=== PATIENT | male | born 1965 | race Two or more races ===

== ENCOUNTER 2016-11-19 10:26 | Inpatient (IN) | payer SELFPAY ==
[2016-11-19] VITALS (13 sets, daily range): BP systolic 133–175; BP diastolic 67–113
[~2016-11-19] VITALS: Ht 162.6 cm; Wt 92.1 kg
[~2016-11-19 10:26] MED LIST: METO25TA2 PO
[2016-11-19] MEDS ORDERED: HEPARIN for IV BOLUS 10,000 UNIT/10 ML VIAL. ONE ×2 (10:40→10:49)
[2016-11-19] MEDS ORDERED: MORPHINE SULFATE 4 MG/ML DISP.SYRIN. ONE (10:40)
[2016-11-19] MEDS ORDERED: ASPIRIN 325 MG TABLET PO ONE (10:45)
[2016-11-19] MEDS ORDERED: HEPARIN for IV BOLUS 10,000 UNIT/10 ML VIAL. IV ONE (10:45)
[2016-11-19] MEDS ORDERED: MORPHINE SULFATE 4 MG/ML DISP.SYRIN. IV ONE (10:45)
[2016-11-19] MEDS ORDERED: LIDOCAINE 2% 20 ML VIAL. ONE ×2 (10:46→13:19)
[2016-11-19] MEDS ORDERED: IOHEXOL 300 MG/ML 100ML VIAL. ONE ×3 (10:46→13:19)
--- NOTE | 2016-11-19 10:48 | PHYS DOC ---
Past Medical History Past Medical History: Hypertension, [place], Other Additional Past Medical Histor: possible HTN (pt has not been diagnosed) Past Surgical History: Other Additional Past Surgical Histo: right ankle x2 Additional Information: 1 PPD Alcohol Use: Occasionally Additional Information: DRINKS EVERY WEDNESDAY Drug Use: None Adult General Chief Complaint Chief Complaint: CHEST PAIN HPI HPI Patient is a 51 year old MALE who presents with chest pain. Started around 10 AM this morning, substernal, diaphoretic, short of breath. Patient reportedly had a negative catheter in September of this year. He has known history of hypertension. He initially stated that he had taken his aspirin but his significant other reportedly DNR only taking his hypertensive medication. No known Cardiac disease, reports this pain feels similar to when he came in September. Review of Systems Review of Systems Unable to obtain secondary to medical condition Current Medications Current Medications Current Medications Medications (Trade) Dose Ordered Sig/Delmy Start Time Stop Time Status Last Admin Dose Admin Aspirin (Adriana Aspirin) 325 mg 1X ONCE 11/19/16 10:45 11/19/16 10:46 DC 11/19/16 10:43 325 MG Heparin Sodium (Porcine) (Heparin Sodium) 4,000 unit 1X ONCE 11/19/16 10:45 11/19/16 10:46 DC 11/19/16 10:44 4,000 UNIT Heparin Sodium/ Sodium Chloride 1,000 ml @ As Directed STK-MED ONCE 11/19/16 10:46 11/19/16 10:47 DC Iohexol (Omnipaque 300 Mg/ml) 100 ml STK-MED ONCE 11/19/16 10:46 11/19/16 10:47 DC Lidocaine HCl 20 ml STK-MED ONCE 11/19/16 10:46 11/19/16 10:47 DC Morphine Sulfate 4 mg 1X ONCE 11/19/16 10:45 11/19/16 10:46 DC 11/19/16 10:44 4 MG Allergies Allergies Allergies Coded Allergies Type Severity Reaction Last Updated Verified No Known Drug Allergies 10/11/16 No Physical Exam Physical Exam Constitutional: Well developed, well nourished,moderate distress, diaphoretic HENT: Normocephalic, atraumatic, bilateral external ears normal, oropharynx moist, no oral exudates, nose normal. [] Eyes: PERRLA, EOMI, conjunctiva normal, no discharge. [] Neck: Normal range of motion, no tenderness, supple, no stridor. [] Cardiovascular:Heart rate regular with regular rhythm, no murmur, bilateral arm and leg pulses intact Lungs & Thorax: Bilateral breath sounds clear to auscultation , no wheeze Abdomensoft, no tenderness, no masses, no pulsatile masses. [] Skin: Warm, dry, no erythema, no rash. [] Back: No tenderness, no CVA tenderness. [] Extremities: No tenderness, no cyanosis, no clubbing, ROM intact Neurologic: Alert and oriented X 3, normal motor function, normal sensory function, no focal deficits noted. [] Current Patient Data Vital Signs Vital Signs Date Time Temp Pulse Resp B/P (MAP) Pulse Ox O2 Delivery O2 Flow Rate FiO2 11/19/16 10:44 24 96 Room Air 11/19/16 10:28 97.8 55 168/92 (117) 97.8 EKG EKG EKG shows 61 bpm, sinus, normal axis, acute inferior lateral STEMI noted, acute change from previous EKGs in our system, interpreted by me Radiology/Procedures Radiology/Procedures [] Course & Med Decision Making Course & Med Decision Making Pertinent Labs and Imaging studies reviewed. (See chart for details) She has given full dose aspirin, heparin bolus 4000 units, 4 mg IV morphine. I was in contact with Dr. Lio Germain and Dr. Montgomery libertarian, patient will be taken directly to the Marketing And Public Relations Manager for an immediate intervention. I spoke with Dr. Wallis , who accepted the patient to inpatient status. Dragon Disclaimer Dragon Disclaimer This electronic medical record was generated, in whole or in part, using a voice recognition dictation system. Departure Departure Impression: Primary Impression: STEMI (ST elevation myocardial infarction) Disposition: ADMITTED INPATIENT Admitting Physician: Other Condition: CRITICAL Referrals: NO PCP (PCP) LUIS ENRIQUE MOISE MD Nov 19, 2016 10:48
[2016-11-19] MEDS ORDERED: NITROGLYCERIN 200 MCG/2 ML SYRINGE FOR CATH/VASC LAB. ONE ×2 (10:49→11:04)
[2016-11-19] MEDS ORDERED: VERAPAMIL 5 MG/2 ML VIAL. ONE (10:49)
[2016-11-19] MEDS ORDERED: fentaNYL PF VIAL 100 MCG/2 ML VIAL ONE (10:50)
[2016-11-19] MEDS ORDERED: MIDAZOLAM HCL/PF 2 MG/2 ML VIAL. ONE (10:50)
[2016-11-19] MEDS ORDERED: IOHEXOL 300 MG/ML 100ML VIAL. IART ONE (11:00)
[2016-11-19] MEDS ORDERED: NITROGLYCERIN 200 MCG/2 ML SYRINGE FOR CATH/VASC LAB. IART ONE ×2 (11:00→11:30)
[2016-11-19] MEDS ORDERED: fentaNYL PF VIAL 100 MCG/2 ML VIAL IV ONE (11:00)
[2016-11-19] MEDS ORDERED: LIDOCAINE 2% 20 ML VIAL. IJ ONE (11:00)
[2016-11-19] MEDS ORDERED: VERAPAMIL 5 MG/2 ML VIAL. IART ONE (11:00)
[2016-11-19] MEDS ORDERED: HEPARIN for IV BOLUS 10,000 UNIT/10 ML VIAL. IART ONE (11:00)
[2016-11-19] MEDS ORDERED: MIDAZOLAM HCL/PF 2 MG/2 ML VIAL. IV ONE (11:00)
[2016-11-19] MEDS ORDERED: TIROFIBAN 12.5MG -0.9% NS 250 ML IV ONE (11:07)
[2016-11-19] MEDS ORDERED: CONTRAST GIVEN MC PRN (11:15)
[2016-11-19] MEDS ORDERED: NITROGLYCERIN PREMIX 250 ML IV ONE ×2 (11:21→11:30)
--- NOTE | 2016-11-19 11:27 | ACF ---
Admission Forms Criteria MYOCARDIAL INFARCTION Clinical Indications for Admission to Inpatient Care (Place 'X' for any and all applicable criteria): Admission is indicated for 1 or more of the following (1)(2)(3)(4): [X]I. Acute MO [ ]II. Contraindications and/or Inappropriate clinical situations for Observational Care in patients with Myocardial Infarction, when ANY ONE of the following is required: [ ]a) Patient with High risk of cardiac embolism (e.g, patients with previous cardiac embolism, LVEF < 40%, age >75 and patients with prosthetic valve) 18 [ ]b) Patient with Moderate risk including DM patient, CAD and patient aged 65-75 18 [ ]c) Patient with any change in cardiac biomarker especially troponin should be managed as high risk in an inpatient setting 19 [ ]d) Physician judgement irrespective of ECG and other diagnostic findings 20 [ ]III.General contraindications and/or Inappropriate clinical situations for Observational Care in patients with Myocardial Infarction, when ANY ONE of the following is required: [ ]a) Prediction of prolongation of LOS based on ANY ONE of the following may be considered as a contraindication for observational care 2, 3, 4, 5, 6, 7, 8, 9, 10, 11 [ ]i) Age > 65 yrs. [ ]ii) Patient arriving by ambulance [ ]iii) Patient with high acuity [ ]iv) Patient requiring vital sign monitoring [ ]v) Patient on IV medication [ ]b) Systolic blood pressures greater than or equal to 180mmHg 3,12 [ ]c) Patient with altered mental status including delirium and other alteration of consciousness, (3) [ ]d) Patient whose discharge disposition will be to a nursing home home or rehabilitation home should not be managed in Emergency Department Observation Unit. CMS rule requires 3 days hospital stay before such placement. 3,13 [ ]e) Patient with failure to thrive due to broad array of etiologies 3 ,16,17 [ ]f) Inability to ambulate 3,14 Extended stay beyond goal length of stay may be needed for (1)(18)(20)(24)(25): [ ]a) Hemodynamic instability, persisting symptoms after intensive medical management, or recurring severe, prolonged symptoms [ ]b) Intravascular procedural complications such as acute vessel closure, stent thrombosis, stent malposition, or vessel dissection (26)(27)(28) [ ]c) Extravascular procedural complications such as retroperitoneal hematoma , pericardial effusion, or cardiac tamponade [ ]d) Entry site complications causing bleeding, hematoma or distal ischemia and requiring ongoing monitoring, surgical repair or surgical thrombectomy. Dangerous arrhythmia [ ]e) Complicated percutaneous coronary intervention (e.g., unsuccessful percutaneous coronary intervention or percutaneous coronary intervention of non- eklutna vessel) [ ]f) Urgent or emergent surgery for complications of MO (e.g., ventricular rupture, valvular insufficiency) [ ]g) Surgical revascularization via coronary artery bypass graft [ ]h) Heart failure (e.g., pulmonary edema) [ ]i) Unstable pulmonary comorbidities, including COPD or pneumonia (31) [ ]j) Acute renal failure The original [employer] content created by [employer] has been revised. The portions of the content which have been revised are identified through the use of italic text or in bold, and [facility] [employer] has neither reviewed nor approved the modified material. All other unmodified content is copyright [facility] [employer] Please see references footnoted in the original [facility] edition 2016 Admission Criteria Met?: Yes SHA MCDONALD Nov 19, 2016 11:27
[2016-11-19] MEDS ORDERED: CLOPIDOGREL BISULFATE 75 MG TABLET PO ONE (11:30)
[2016-11-19] MEDS: TIROFIBAN 12.5MG -0.9% NS 250 ML IV PRN ×2 (11:34→22:26)
[2016-11-19 11:51] LABS: BASO # 0.1 x10^3/uL (0.0-0.2); BASO % 1 % (0-3); EOS % 3 % (0-3); HEMATOCRIT 41.7 % (39.0-53.0); LYMPH % 36 % (24-48); MEAN CORPUSCULAR HEMOGLOBIN 27 pg (25-35); MEAN CORPUSCULAR HGB CONC 34 g/dL (31-37); MEAN CORPUSCULAR VOLUME 80 fL (79-100); MONO % 10 % (0-9); NEUT % 49 % (31-73); PLATELET COUNT 244 x10^3/uL (140-400); RED BLOOD COUNT 5.19 x10^6/uL (4.30-5.70); RED CELL DISTRIBUTION WIDTH 13.7 % (11.5-14.5)
[2016-11-19 12:14] LABS: ALBUMIN 3.2 g/dL (3.4-5.0); ALBUMIN/GLOBULIN RATIO 0.9 (1.0-1.7); CALCIUM 9.1 mg/dL (8.5-10.1); CREATININE 0.9 mg/dL (0.7-1.3); GFR 88.6; POTASSIUM 3.9 mmol/L (3.5-5.1); TOTAL BILIRUBIN 0.5 mg/dL (0.2-1.0); TOTAL PROTEIN 6.8 g/dL (6.4-8.2)
--- NOTE | 2016-11-19 13:52 | EKG ---
[facility] [address] [place] [address] Test Date: 2016-11-19 Test Time: 10:29:37 Pat Name: SARAH GODOY Department: Room: 252 1 Gender: M Parole Or Probation Officer: : 1965 Requested By: LUIS ENRIQUE MOISE Order Number: [id number] Reading MD: Marcia Oliveira Measurements Intervals [place] Rate: 61 P: -34 [place]: 146 QRS: 26 QRSD: 92 T: 46 QT: 412 QTc: 416 Interpretive Statements SINUS RHYTHM ACUTE ST ELEVATION INFEROLATERAL WALL MT Electronically Signed On 11-21-2016 19:03:52 CDT by Marcia Oliveira
[2016-11-19] MEDS: METOPROLOL SUCC 24HR ER 25 MG TAB.ER.24H. PO SCH ×2 (14:00→21:21)
--- NOTE | 2016-11-19 14:52 | HP ---
ADMIT DATE: 11/19/2016 CHIEF COMPLAINT: Chest pain. HISTORY OF PRESENT ILLNESS: The patient presented to the Emergency Room with central chest pain which started at about 10 o'clock this morning. He relates he had shortness of breath as well as sweating with this. Pain did not get better when he took extra aspirin this morning. He actually had undergone a cardiac catheterization in September of this year which was clean. In the Emergency Room, however, EKG showed significant ST elevations, and he was immediately taken to Cardiac Cath for evaluation. Surprisingly, catheterization once again was reportedly clean. The patient is now admitted to the [facility] for post catheterization care. He remains on nitroglycerin drip. PAST MEDICAL HISTORY: No cardiac disease per catheterization one month ago. No other medical issues. FAMILY HISTORY: No family history of heart disease but hypertension. SOCIAL HISTORY: He lives with his . He smokes about a pack a day, alcohol occasionally. ALLERGIES: No known drug allergies. HOME MEDICATIONS: Reconciled with MAR. Only takes metoprolol at home. REVIEW OF SYSTEMS: The patient is slightly sedated from catheterization. Still has some remnant of his chest pain in the middle of his chest. No other symptoms, however. PHYSICAL EXAMINATION: VITAL SIGNS: Show a blood pressure of 141/87, heart rate of 68, respiratory rate at 20. He is afebrile. GENERAL: This is a 51-year-old gentleman, mildly sedated, answering appropriately, in no acute distress. HEENT: Shows no scleral icterus. NECK: Supple. LUNGS: Clear to auscultation bilaterally. HEART: Regular rate and rhythm. ABDOMEN: Has positive bowel sounds, soft, nontender. EXTREMITIES: Show no edema, no clubbing, no cyanosis. SKIN: Warm, soft, and dry. LABORATORY DATA: CBC with a WBC of 11.0, hemoglobin 14, and platelets of 244. Chemistries with a BUN and creatinine of 17 and 0.9, normal electrolytes, normal LFTs. Troponin initially was 0.09. Toxicity screen not obtained. ASSESSMENT AND PLAN: The patient is a 51-year-old gentleman re-presenting with atypical chest pain and EKG changes. A cardiac catheterization; however, is negative. We will recover from cardiac catheterization. He is still on Aggrastat as well as nitroglycerin. We will titrate the latter as tolerated. Post-Cath protocol is in place. No other risk factors for heart disease can be discerned. Etiology of his chest pain clearly is other. The picture is somewhat unusual given his significant EKG changes. Await further input from Cardiology. We will start proton pump inhibitor as well prophylactically. NUPUR VIZCAINO MD DR: UR/nts JOB#: [id number] / [id number] ELIE
[2016-11-19] MEDS ORDERED: HYDROCORTISONE 1% TOPICAL OINTMENT 30GM TUBE. TP PRN (15:15)
[2016-11-19] MEDS: PANTOPRAZOLE 40 MG TABLET.DR. PO SCH (15:41)
[2016-11-19] MEDS ORDERED: hydrALAZINE 20 MG/ML VIAL. IVP PRN (15:45)
--- NOTE | 2016-11-19 16:45 | CARD ---
APPROVED REPORT Procedure(s) performed: Right transradial approach Left Heart Catheterization PTCA - LAD HISTORY : tobacco history() : The patient is a current smoker. INDICATION The indication(s) include : STEMI (>0 to less than or equal to 6 hours), Patient is a 51-year-old gen tleman who comes into the hospital with acute onset of chest pain 30 minutes prior to arrival. He had a recent heart catheterization which was unremarkable. He had significant EKG changes suggestive of new ST elevation in the inferior and lateral leads and given these acute changes with his symptomatol ogy he was taken emergently to the catheter lab.. CASE TECHNIQUE During this case, Fluoroscopy and low osmolar contrast were used for imaging. PROCEDURE NARRATIVE The patient was brought emergently to the cardiac catheterization lab. A timeout was performed confi rming the patient's name, date of , procedure, and site of procedure. All necessary personnel w ere wearing the appropriate protective equipment and radiation monitor devices. After explaining the risks and benefits of the procedure and alternatives, verbal informed consent was obtained. (See [facility] for medications administered). The right wrist was sterilely prepped and draped in the us ual fashion. The right wrist was infiltrated with 1 mL of 2% lidocaine for subcutaneous anesthesia. A 6 Cypriot Terumo glide sheath was inserted into the right radial artery without difficulty. Right and left coronary angiography was performed using a 6Fr Ikari R 1.5 catheter and a TIG 4.0 catheter. HEMODYNAMICS: LVEDP 15 mm Hg No gradient on LV to aortic pullback. LEFT VENTRICULOGRAM: EF 55% Anterobasal: Normal. Anterolateral: Normal Apical: Akinetic Diaphragmatic: Normal Posterobasal: Normal CORONARY ANGIOGRAPHY: LM is a large caliber vessel with normal angiographic appearance. LAD is a large caliber vessel with an apical subtotal occlusion. Previous catheterization revealed an apical wrap around LAD, that was less robust. Ramus is a small caliber vessel with normal angiographic apeparance. LCx is a moderate caliber non-dominant vessel with normal angiographic appearance. OM1 is a moderate caliber vessel with normal angiographic appearance. RCA is a large caliber dominant vessel with normal angiographic appearance. INTERVENTIONAL TECHNIQUE: PTCA of the LAD. Due to the patient's persistent chest pain, lack of any clear evidence of apical LAD flow and ST elev ation and intervention was performed on the apical left anterior descending artery. Heparin and tirof georgi were used for anticoagulation and antiplatelet therapy. The patient was preloaded with aspirin. Through a 6 Cypriot EBU 3.5 guide catheter a 0.014 inch pro-water wire was advanced to the apical LAD. Prior to angioplasty multiple doses of nitroglycerin and verapamil were given but despite this there was no significant change and therefore the angioplasty was performed. Next, a Trek 2.0 x 12 mm ball oon was used to perform angioplasty of the distal LAD. Post angioplasty there was mildly increased fl ow in the apical LAD. Due to the small size of the vessel and no significant resolution further inter vention was deferred. Left ventricular end diastolic pressure was obtained with a pigtail catheter and pullback was performed after left ventriculography. All catheter exchanges and advancements were performed over a guidewire. At case completion the right radial sheath was removed and a Mobiscope ial band was applied with 13 ml of air. The patient tolerated the procedure well and there were no i mmediate complications. Conclusion 1. Apical left anterior descending artery occlusion, etiology unclear. No proximal plaque burden to n ote. No obvious stress-induced cardio myopathy by left ventriculography. 2. Unsuccessful apical LAD angioplasty with a 2.0 x 12 mm balloon. Recommendations ASA 81mg daily Plavix 75mg daily Continue Tirofiban gtt.
[2016-11-19] MEDS ORDERED: MORPHINE SULFATE 2 MG/ML DISP.SYRIN. IV PRN ×2 (20:15)
[2016-11-20 03:58] VITALS: BP 136/85
[2016-11-20 07:00] VITALS: BP 151/89
[2016-11-20] MEDS: PANTOPRAZOLE 40 MG TABLET.DR. PO SCH (08:23)
[2016-11-20] MEDS: METOPROLOL SUCC 24HR ER 25 MG TAB.ER.24H. PO SCH ×2 (08:24→21:02)
--- NOTE | 2016-11-20 10:04 | PDOC ---
PROGRESS NOTES Chief Complaint Chief Complaint cc: Chest pain A/P 1. STEMI: unsuccessful angioplasty, on Aspirin and Plavix, continue current care. prn nitro for chest pain 2. HTN: control with Meds 3. mixed hyperlipidemia: on statin Vitals Vitals Vital Signs Date Time Temp Pulse Resp B/P (MAP) Pulse Ox O2 Delivery O2 Flow Rate FiO2 11/20/16 08:24 85 151/89 11/20/16 08:15 Room Air 11/20/16 07:00 98.1 20 99 98.1 11/19/16 15:00 96.0 Physical Exam General: Alert, Oriented X3 Heart: Regular rate, Normal S1, Normal S2 Lungs: Clear Abdomen: Normal bowel sounds Extremities: No clubbing Labs LABS Laboratory Tests Test 11/19/16 10:32 11/19/16 10:35 White Blood Count 11.0 x10^3/uL (4.0-11.0) Red Blood Count 5.19 x10^6/uL (4.30-5.70) Hemoglobin 14.0 g/dL (13.0-17.5) Hematocrit 41.7 % (39.0-53.0) Mean Corpuscular Volume 80 fL (79-100) Mean Corpuscular Hemoglobin 27 pg (25-35) Mean Corpuscular Hemoglobin Concent 34 g/dL (31-37) Red Cell Distribution Width 13.7 % (11.5-14.5) Platelet Count 244 x10^3/uL (140-400) Neutrophils (%) (Auto) 49 % (31-73) Lymphocytes (%) (Auto) 36 % (24-48) Monocytes (%) (Auto) 10 % (0-9) Eosinophils (%) (Auto) 3 % (0-3) Basophils (%) (Auto) 1 % (0-3) Neutrophils # (Auto) 5.4 x10^3uL (1.8-7.7) Lymphocytes # (Auto) 4.0 x10^3/uL (1.0-4.8) Monocytes # (Auto) 1.1 x10^3/uL (0.0-1.1) Eosinophils # (Auto) 0.4 x10^3/uL (0.0-0.7) Basophils # (Auto) 0.1 x10^3/uL (0.0-0.2) Sodium Level 142 mmol/L (136-145) Potassium Level 3.9 mmol/L (3.5-5.1) Chloride Level 107 mmol/L (98-107) Carbon Dioxide Level 24 mmol/L (21-32) Anion Gap 11 (6-14) Blood Urea Nitrogen 17 mg/dL (8-26) Creatinine 0.9 mg/dL (0.7-1.3) Estimated GFR (Cockcroft-Gault) 88.6 BUN/Creatinine Ratio 19 (6-20) Glucose Level 129 mg/dL (70-99) Calcium Level 9.1 mg/dL (8.5-10.1) Total Bilirubin 0.5 mg/dL (0.2-1.0) Aspartate Amino Transf (AST/SGOT) 23 U/L (15-37) Alanine Aminotransferase (ALT/SGPT) 32 U/L (16-63) Alkaline Phosphatase 102 U/L (46-116) Troponin I Quantitative 0.019 ng/mL (0.000-0.055) Total Protein 6.8 g/dL (6.4-8.2) Albumin 3.2 g/dL (3.4-5.0) Albumin/Globulin Ratio 0.9 (1.0-1.7) Bedside Troponin I 0.01 ng/ml (<0.08) Assessment and Plan Assessmemt and Plan Problems Medical Problems: (1) STEMI (ST elevation myocardial infarction) Status: Acute Problems: Comment Review of Relevant I have reviewed the following items tessa (where applicable) has been applied. Labs Laboratory Tests Test 11/19/16 10:32 11/19/16 10:35 White Blood Count 11.0 x10^3/uL (4.0-11.0) Red Blood Count 5.19 x10^6/uL (4.30-5.70) Hemoglobin 14.0 g/dL (13.0-17.5) Hematocrit 41.7 % (39.0-53.0) Mean Corpuscular Volume 80 fL (79-100) Mean Corpuscular Hemoglobin 27 pg (25-35) Mean Corpuscular Hemoglobin Concent 34 g/dL (31-37) Red Cell Distribution Width 13.7 % (11.5-14.5) Platelet Count 244 x10^3/uL (140-400) Neutrophils (%) (Auto) 49 % (31-73) Lymphocytes (%) (Auto) 36 % (24-48) Monocytes (%) (Auto) 10 % (0-9) Eosinophils (%) (Auto) 3 % (0-3) Basophils (%) (Auto) 1 % (0-3) Neutrophils # (Auto) 5.4 x10^3uL (1.8-7.7) Lymphocytes # (Auto) 4.0 x10^3/uL (1.0-4.8) Monocytes # (Auto) 1.1 x10^3/uL (0.0-1.1) Eosinophils # (Auto) 0.4 x10^3/uL (0.0-0.7) Basophils # (Auto) 0.1 x10^3/uL (0.0-0.2) Sodium Level 142 mmol/L (136-145) Potassium Level 3.9 mmol/L (3.5-5.1) Chloride Level 107 mmol/L (98-107) Carbon Dioxide Level 24 mmol/L (21-32) Anion Gap 11 (6-14) Blood Urea Nitrogen 17 mg/dL (8-26) Creatinine 0.9 mg/dL (0.7-1.3) Estimated GFR (Cockcroft-Gault) 88.6 BUN/Creatinine Ratio 19 (6-20) Glucose Level 129 mg/dL (70-99) Calcium Level 9.1 mg/dL (8.5-10.1) Total Bilirubin 0.5 mg/dL (0.2-1.0) Aspartate Amino Transf (AST/SGOT) 23 U/L (15-37) Alanine Aminotransferase (ALT/SGPT) 32 U/L (16-63) Alkaline Phosphatase 102 U/L (46-116) Troponin I Quantitative 0.019 ng/mL (0.000-0.055) Total Protein 6.8 g/dL (6.4-8.2) Albumin 3.2 g/dL (3.4-5.0) Albumin/Globulin Ratio 0.9 (1.0-1.7) Bedside Troponin I 0.01 ng/ml (<0.08) Laboratory Tests Test 11/19/16 10:32 11/19/16 10:35 White Blood Count 11.0 x10^3/uL (4.0-11.0) Red Blood Count 5.19 x10^6/uL (4.30-5.70) Hemoglobin 14.0 g/dL (13.0-17.5) Hematocrit 41.7 % (39.0-53.0) Mean Corpuscular Volume 80 fL (79-100) Mean Corpuscular Hemoglobin 27 pg (25-35) Mean Corpuscular Hemoglobin Concent 34 g/dL (31-37) Red Cell Distribution Width 13.7 % (11.5-14.5) Platelet Count 244 x10^3/uL (140-400) Neutrophils (%) (Auto) 49 % (31-73) Lymphocytes (%) (Auto) 36 % (24-48) Monocytes (%) (Auto) 10 % (0-9) Eosinophils (%) (Auto) 3 % (0-3) Basophils (%) (Auto) 1 % (0-3) Neutrophils # (Auto) 5.4 x10^3uL (1.8-7.7) Lymphocytes # (Auto) 4.0 x10^3/uL (1.0-4.8) Monocytes # (Auto) 1.1 x10^3/uL (0.0-1.1) Eosinophils # (Auto) 0.4 x10^3/uL (0.0-0.7) Basophils # (Auto) 0.1 x10^3/uL (0.0-0.2) Sodium Level 142 mmol/L (136-145) Potassium Level 3.9 mmol/L (3.5-5.1) Chloride Level 107 mmol/L (98-107) Carbon Dioxide Level 24 mmol/L (21-32) Anion Gap 11 (6-14) Blood Urea Nitrogen 17 mg/dL (8-26) Creatinine 0.9 mg/dL (0.7-1.3) Estimated GFR (Cockcroft-Gault) 88.6 BUN/Creatinine Ratio 19 (6-20) Glucose Level 129 mg/dL (70-99) Calcium Level 9.1 mg/dL (8.5-10.1) Total Bilirubin 0.5 mg/dL (0.2-1.0) Aspartate Amino Transf (AST/SGOT) 23 U/L (15-37) Alanine Aminotransferase (ALT/SGPT) 32 U/L (16-63) Alkaline Phosphatase 102 U/L (46-116) Troponin I Quantitative 0.019 ng/mL (0.000-0.055) Total Protein 6.8 g/dL (6.4-8.2) Albumin 3.2 g/dL (3.4-5.0) Albumin/Globulin Ratio 0.9 (1.0-1.7) Bedside Troponin I 0.01 ng/ml (<0.08) Medications Current Medications Morphine Sulfate 4 mg STK-MED ONCE .ROUTE ; Start 11/19/16 at 10:40; Stop at 10:41; Status DC Heparin Sodium (Porcine) (Heparin Sodium) 10,000 unit STK-MED ONCE .ROUTE ; Start 11/19/16 at 10:40; Stop 11/19/16 at 10:41; Status DC Morphine Sulfate 4 mg 1X ONCE IV Last administered on 11/19/16 10:44; Start at 10:45; Stop 11/19/16 at 10:46; Status DC Heparin Sodium (Porcine) (Heparin Sodium) 4,000 unit 1X ONCE IV Last administered on 11/19/16 10:44; Start 11/19/16 at 10:45; Stop 11/19/16 at 10:46; Status DC Aspirin (Adriana Aspirin) 325 mg 1X ONCE PO Last administered on 11/19/16 10:43 ; Start 11/19/16 at 10:45; Stop 11/19/16 at 10:46; Status DC Iohexol (Omnipaque 300 Mg/ml) 100 ml STK-MED ONCE .ROUTE ; Start 11/19/16 at 10: 46; Stop 11/19/16 at 10:47; Status DC Heparin Sodium/ Sodium Chloride 1,000 ml @ As Directed STK-MED ONCE .ROUTE ; Start 11/19/16 at 10:46; Stop 11/19/16 at 10:47; Status DC Lidocaine HCl 20 ml STK-MED ONCE .ROUTE ; Start 11/19/16 at 10:46; Stop 11/19/16 at 10:47; Status DC Nitroglycerin (Nitroglycerin) 200 mcg STK-MED ONCE .ROUTE ; Start 11/19/16 at 10: 49; Stop 11/19/16 at 10:50; Status DC Verapamil HCl (Verapamil) 5 mg STK-MED ONCE .ROUTE ; Start 11/19/16 at 10:49; Stop 11/19/16 at 10:50; Status DC Heparin Sodium (Porcine) (Heparin Sodium) 10,000 unit STK-MED ONCE .ROUTE ; Start 11/19/16 at 10:49; Stop 11/19/16 at 10:50; Status DC Fentanyl Citrate (Fentanyl 2ml Vial) 100 mcg STK-MED ONCE .ROUTE ; Start at 10:50; Stop 11/19/16 at 10:51; Status DC Midazolam HCl (Versed) 2 mg STK-MED ONCE .ROUTE ; Start 11/19/16 at 10:50; Stop 11/19/16 at 10:51; Status DC Nitroglycerin (Nitroglycerin) 200 mcg 1X ONCE IART Last administered on 11:35; Start 11/19/16 at 11:00; Stop 11/19/16 at 11:04; Status DC Verapamil HCl (Verapamil) 2.5 mg 1X ONCE IART Last administered on 11/19/16 11 :36; Start 11/19/16 at 11:00; Stop 11/19/16 at 11:04; Status DC Heparin Sodium (Porcine) (Heparin Sodium) 2,500 unit 1X ONCE IART Last administered on 11/19/16 11:37; Start 11/19/16 at 11:00; Stop 11/19/16 at 11:04; Status DC Heparin Sodium/ Sodium Chloride 1,000 unit 1X ONCE IART Last administered on 11:37; Start 11/19/16 at 11:00; Stop 11/19/16 at 11:04; Status DC Midazolam HCl (Versed) 2 mg 1X ONCE IV Last administered on 11/19/16 11:37; Start 11/19/16 at 11:00; Stop 11/19/16 at 11:04; Status DC Fentanyl Citrate (Fentanyl 2ml Vial) 100 mcg 1X ONCE IV Last administered on 11:37; Start 11/19/16 at 11:00; Stop 11/19/16 at 11:04; Status DC Iohexol (Omnipaque 300 Mg/ml) 100 ml 1X ONCE IART Last administered on 6/8/ 17at 11:35; Start 11/19/16 at 11:00; Stop 11/19/16 at 11:04; Status DC Lidocaine HCl 20 ml 1X ONCE IJ Last administered on 11/19/16 11:35; Start 11/19 at 11:00; Stop 11/19/16 at 11:04; Status DC Info (Do NOT chart on this entry -- for MONITORING) 1 each PRN DAILY PRN MC SEE COMMENTS; Start 11/19/16 at 11:15; Stop 11/21/16 at 11:14 Nitroglycerin (Nitroglycerin) 200 mcg STK-MED ONCE .ROUTE ; Start 11/19/16 at 11: 04; Stop 11/19/16 at 11:05; Status DC Tirofiban/Sodium Chloride 250 ml @ As Directed STK-MED ONCE IV ; Start 11/19/16 at 11:07; Stop 11/19/16 at 11:08; Status DC Iohexol (Omnipaque 300 Mg/ml) 100 ml STK-MED ONCE .ROUTE ; Start 11/19/16 at 11: 12; Stop 11/19/16 at 11:13; Status DC Tirofiban/Sodium Chloride 250 ml @ 0 mls/hr CONT PRN IV PER PROTOCOL Last administered on 11/19/16 22:26; Start 11/19/16 at 11:30; Stop 11/20/16 at 05:29; Status DC Nitroglycerin (Nitroglycerin) 200 mcg 1X ONCE IART Last administered on 11:35; Start 11/19/16 at 11:30; Stop 11/19/16 at 11:31; Status DC Nitroglycerin/ Dextrose 250 ml @ As Directed STK-MED ONCE IV ; Start 11/19/16 at 11:21; Stop 11/19/16 at 11:22; Status DC Clopidogrel Bisulfate (Plavix) 600 mg 1X ONCE PO Last administered on 11:38; Start 11/19/16 at 11:30; Stop 11/19/16 at 11:31; Status DC Nitroglycerin/ Dextrose 250 ml @ 0 mls/hr 1X ONCE IV Last administered on 11:34; Start 11/19/16 at 11:30; Stop 11/19/16 at 11:31; Status DC Metoprolol Succinate (Toprol Xl) 12.5 mg BID PO Last administered on 11/20/16 08:24; Start 11/19/16 at 14:00 Pantoprazole Sodium (Protonix) 40 mg DAILYAC PO Last administered on 11/20/16 08:23; Start 11/19/16 at 16:30 Iohexol (Omnipaque 300 Mg/ml) 100 ml STK-MED ONCE .ROUTE ; Start 11/19/16 at 13: 19; Stop 11/19/16 at 13:20; Status DC Heparin Sodium/ Sodium Chloride 1,000 ml @ As Directed STK-MED ONCE .ROUTE ; Start 11/19/16 at 13:19; Stop 11/19/16 at 13:20; Status DC Lidocaine HCl 20 ml STK-MED ONCE .ROUTE ; Start 11/19/16 at 13:19; Stop 11/19/16 at 13:20; Status DC Hydrocortisone (Cortaid) 1 michael PRN Q2HRS PRN TP ITCHING Last administered on 21:26; Start 11/19/16 at 15:15 Hydralazine HCl (Apresoline) 10 mg PRN Q4HRS PRN IVP ELEVATED BP, SEE COMMENTS Last administered on 11/19/16 15:41; Start 11/19/16 at 15:45 Morphine Sulfate 2 mg PRN Q4HRS PRN IV PAIN Last administered on 11/19/16 21:22 ; Start 11/19/16 at 20:15 Morphine Sulfate 4 mg PRN Q4HRS PRN IV PAIN; Start 11/19/16 at 20:15 Aspirin (Children'S Aspirin) 81 mg DAILYWBKFT PO ; Start 11/20/16 at 10:00 Clopidogrel Bisulfate (Plavix) 75 mg DAILYWBKFT PO ; Start 11/20/16 at 10:00 Active Scripts Active Reported Toprol Xl (Metoprolol Succinate) 25 Mg Tab.er.24h 0.05 Tab PO BID Vitals/I & O Vital Sign - Last 24 Hours 11/19/16 11/19/16 11/19/16 11/19/16 10:28 10:44 11:36 11:37 Temp 97.8 97.8 Pulse 55 77 Resp 24 24 14 B/P (MAP) 168/92 (117) Pulse Ox 100 96 94 O2 Delivery Room Air Room Air Nasal Cannula O2 Flow Rate 2.0 11/19/16 11/19/16 11/19/16 11/19/16 11:49 12:30 12:39 12:45 Temp 97.9 97.9 Pulse 75 68 68 70 Resp 14 20 B/P (MAP) 136/88 (104) 141/87 (105) 134/85 (101) Pulse Ox 97 94 O2 Delivery Nasal Cannula Room Air O2 Flow Rate 2.0 11/19/16 11/19/16 11/19/16 11/19/16 13:00 13:15 13:45 14:15 Pulse 67 69 69 75 B/P (MAP) 144/84 (104) 145/90 (108) 133/82 (99) 146/85 (105) 11/19/16 11/19/16 11/19/16 11/19/16 14:30 15:00 15:30 15:41 Temp 98.6 98.6 Pulse 78 74 83 Resp 18 B/P (MAP) 158/88 (111) 175/95 (121) 175/95 O2 Delivery Room Air Room Air O2 Flow Rate 96.0 11/19/16 11/19/16 11/19/16 11/19/16 16:30 19:20 19:30 21:21 Temp 97.6 97.6 Pulse 76 85 85 Resp 22 B/P (MAP) 137/67 (90) 141/82 (101) 141/82 Pulse Ox 95 O2 Delivery Room Air Room Air 11/19/16 11/19/16 11/19/16 11/20/16 21:22 21:52 22:27 03:58 Temp 98.3 98.2 98.3 98.2 Pulse 75 80 Resp 20 20 20 18 B/P (MAP) 138/80 (99) 136/85 (102) Pulse Ox 97 98 O2 Delivery Room Air Room Air Room Air Room Air 11/20/16 11/20/16 11/20/16 07:00 08:15 08:24 Temp 98.1 98.1 Pulse 81 85 Resp 20 B/P (MAP) 151/89 (109) 151/89 Pulse Ox 99 O2 Delivery Room Air Room Air Intake and Output 11/19/16 11/19/16 11/20/16 15:00 23:00 07:00 Intake Total 403.89 ml Output Total 600 ml 1200 ml Balance -196.11 ml -1200 ml JAYE AGEE MD Nov 20, 2016 10:04
[2016-11-20] MEDS: ASPIRIN CHEWABLE 81 MG TABLET. PO SCH (10:16)
[2016-11-20] MEDS: CLOPIDOGREL BISULFATE 75 MG TABLET PO SCH (10:16)
[2016-11-20 10:28] LABS: CHOLESTEROL/HDL RATIO 5.6
--- NOTE | 2016-11-20 10:31 | PDOC ---
FRIDA MOSLEY FOOD BEVERAGE MANAGER 11/20/16 1030: CARDIO Progress Notes Date and Time Date of Service 11/20/2016 Time of Evaluation 1030 Subjective Subjective: No Chest Pain, No shortness of breath, No Palpitations, No Dizziness Vitals Vitals Vital Signs Date Time Temp Pulse Resp B/P (MAP) Pulse Ox O2 Delivery O2 Flow Rate FiO2 11/20/16 08:24 85 151/89 11/20/16 08:15 Room Air 11/20/16 07:00 98.1 20 99 98.1 11/19/16 15:00 96.0 Weight Weight [ ] Stability Assessment Stability Assess.: other Input and Output Intake and Output Intake and Output 11/20/16 07:00 Intake Total 403.89 ml Output Total 1800 ml Balance -1396.11 ml Intake Oral 240 ml IV Total 163.89 ml Output Urine Total 1800 ml # Voids 1 Laboratory Labs Laboratory Tests Test 11/19/16 10:32 11/19/16 10:35 White Blood Count 11.0 x10^3/uL (4.0-11.0) Red Blood Count 5.19 x10^6/uL (4.30-5.70) Hemoglobin 14.0 g/dL (13.0-17.5) Hematocrit 41.7 % (39.0-53.0) Mean Corpuscular Volume 80 fL (79-100) Mean Corpuscular Hemoglobin 27 pg (25-35) Mean Corpuscular Hemoglobin Concent 34 g/dL (31-37) Red Cell Distribution Width 13.7 % (11.5-14.5) Platelet Count 244 x10^3/uL (140-400) Neutrophils (%) (Auto) 49 % (31-73) Lymphocytes (%) (Auto) 36 % (24-48) Monocytes (%) (Auto) 10 % (0-9) Eosinophils (%) (Auto) 3 % (0-3) Basophils (%) (Auto) 1 % (0-3) Neutrophils # (Auto) 5.4 x10^3uL (1.8-7.7) Lymphocytes # (Auto) 4.0 x10^3/uL (1.0-4.8) Monocytes # (Auto) 1.1 x10^3/uL (0.0-1.1) Eosinophils # (Auto) 0.4 x10^3/uL (0.0-0.7) Basophils # (Auto) 0.1 x10^3/uL (0.0-0.2) Sodium Level 142 mmol/L (136-145) Potassium Level 3.9 mmol/L (3.5-5.1) Chloride Level 107 mmol/L (98-107) Carbon Dioxide Level 24 mmol/L (21-32) Anion Gap 11 (6-14) Blood Urea Nitrogen 17 mg/dL (8-26) Creatinine 0.9 mg/dL (0.7-1.3) Estimated GFR (Cockcroft-Gault) 88.6 BUN/Creatinine Ratio 19 (6-20) Glucose Level 129 mg/dL (70-99) Calcium Level 9.1 mg/dL (8.5-10.1) Total Bilirubin 0.5 mg/dL (0.2-1.0) Aspartate Amino Transf (AST/SGOT) 23 U/L (15-37) Alanine Aminotransferase (ALT/SGPT) 32 U/L (16-63) Alkaline Phosphatase 102 U/L (46-116) Troponin I Quantitative 0.019 ng/mL (0.000-0.055) Total Protein 6.8 g/dL (6.4-8.2) Albumin 3.2 g/dL (3.4-5.0) Albumin/Globulin Ratio 0.9 (1.0-1.7) Triglycerides Level 191 mg/dL (0-150) Cholesterol Level 189 mg/dL (0-200) LDL Cholesterol, Calculated 117 mg/dL (0-100) VLDL Cholesterol, Calculated 38 mg/dL (0-40) Non-HDL Cholesterol Calculated 155 mg/dL (0-129) HDL Cholesterol 34 mg/dL (40-60) Cholesterol/HDL Ratio 5.6 Bedside Troponin I 0.01 ng/ml (<0.08) Physical Exam HEENT: Neck Supple W Full Motion Chest: Symmetric LUNGS: Clear to Auscultation Heart: S1S2, RRR, no gallops, no murmurs, no jug vein distention, other (tele: SR with persistent mild ST seg elevation in lead II; significantly less than yesterday) Abdomen: Soft N/T Extremities: No Edema, Other (left radial arteriotomy C/D/I; no erythema, edema , ecchymosis) Neurology: alert, oriented Assessment Assessment 1. STEMI inferior and lateral changes PTCA attempted on apical LAD - unsuccessful (small size) etiology unclear no CMP - LVEF 55% on LVgram DAPT for now persistent mild ST segment elevation on telemetry not unexpected and significantly less than yesterday - as artery was not revascularized activity restrictions discussed 2. HTN control with meds 3. mixed hyperlipidemia start statin therapy could discharge on pravastatin 40 mg QHS as on $4 list (no insurance) Agreeable with discharge JEMIMA PEREZ MD 11/20/16 1656: CARDIO Progress Notes Plan Plan Pt. seen and examined. Agree with above SALES ENGINEER ACCOUNT MANAGER note. No acute events overnight. No acute issues on tele Normal heart tones. Labs reviewed. Meds noted. Continue present meds. Ok to DC from CV perspective. FRIDA MOSLEY APRN Nov 20, 2016 10:30 JEMIMA PEREZ MD Nov 20, 2016 16:56
[2016-11-20 11:00] VITALS: BP 125/82
[2016-11-20 15:00] VITALS: BP 110/75
[2016-11-20 19:20] VITALS: BP 125/74
[2016-11-20] MEDS ORDERED: SIMVASTATIN 40 MG TABLET. PO SCH (21:00)
[2016-11-20 23:32] VITALS: BP 130/81
[2016-11-21 03:37] VITALS: BP 104/69
[2016-11-21 07:00] VITALS: BP 105/72
[2016-11-21] MEDS: CLOPIDOGREL BISULFATE 75 MG TABLET PO SCH (09:08)
[2016-11-21] MEDS: ASPIRIN CHEWABLE 81 MG TABLET. PO SCH (09:08)
[2016-11-21] MEDS: PANTOPRAZOLE 40 MG TABLET.DR. PO SCH (09:08)
[2016-11-21] MEDS: METOPROLOL SUCC 24HR ER 25 MG TAB.ER.24H. PO SCH (09:09)
[2016-11-21 11:07] VITALS: BP 102/62
[2016-11-21] MEDS ORDERED: CLOP75TA PO (12:48)
[2016-11-21] MEDS ORDERED: METO25TA9 PO (12:48)
[2016-11-21] MEDS ORDERED: SIMV40TA3 PO (12:48)
[2016-11-21] MEDS ORDERED: ASPI-630 PO (12:48)
== END 2016-11-21 15:11 | disposition home or self-care (01) | DRG 251 ==
LOC: ER 10:26 → 2 SOUTH 10:49
PROVIDERS: ADMIT Internal Medicine Hematology & Oncology; ATTEND Internal Medicine Hematology & Oncology
PROC: 4A023N7 Measurement of Cardiac Sampling and Pressure, Left Heart, Percutaneous Approach (ICD-10-PCS; principal; 2016-11-19)
PROC: 02703ZZ Dilation of Coronary Artery, One Artery, Percutaneous Approach (ICD-10-PCS; 2016-11-19)
PROC: B2111ZZ Fluoroscopy of Multiple Coronary Arteries using Low Osmolar Contrast (ICD-10-PCS; 2016-11-19)
PROC: B2151ZZ Fluoroscopy of Left Heart using Low Osmolar Contrast (ICD-10-PCS; 2016-11-19)
DX: I21.19 ST elevation (STEMI) myocardial infarction involving other coronary artery of inferior wall (principal); I10 Essential (primary) hypertension; F17.210 Nicotine dependence, cigarettes, uncomplicated; E78.2 Mixed hyperlipidemia; Z79.899 Other long term (current) drug therapy; Z82.49 Family history of ischemic heart disease and other diseases of the circulatory system; Z79.1 Long term (current) use of non-steroidal anti-inflammatories (NSAID); Z79.82 Long term (current) use of aspirin
CPT/HCPCS: 36415; 80053; 80061; 84484; 85027; 92941; 93005; 93458; 96374; 99406; C1725; C1769; C1887; C1892; J0360; J2250; J2270; J3010; J3490; Q9967; 99285-25; J3246

== ENCOUNTER 2017-11-10 18:30 | Emergency (ER) | payer SELFPAY | END 2017-11-10 19:22 | disposition home or self-care (01) | LOC: ER 18:30 | DX: R21 Rash and other nonspecific skin eruption (principal); I10 Essential (primary) hypertension; I25.2 Old myocardial infarction | CPT/HCPCS: 99283 ==